=== PATIENT | female | born 2000 | race Caucasian/White ===

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

== ENCOUNTER 2020-08-01 21:26 | Emergency (ER) | payer SELFPAY ==
[2020-08-01] MEDS ORDERED: Albuterol/Ipratropium 3.0-0.5 MG/3 ML Neb Soln NEB ONE (21:56)
--- NOTE | 2020-08-01 22:00 | EDM.PDOC ---
ED HPI GENERAL MEDICAL PROBLEM - General Chief Complaint: Asthma Stated Complaint: ASTHMA RELATED SOB Time Seen by Provider: 08/01/20 21:46 Source of Information: Reports: Patient History Limitations: Reports: No Limitations - History of Present Illness INITIAL COMMENTS - FREE TEXT/NARRATIVE: Patient is a 19-year-old female presenting to the emergency department with complaints of asthma exacerbation. She has had asthma for a number of years. She had previously been prescribed an albuterol inhaler, however she states she has been out of this medication for a while. They recently got a new dog a few days ago although she has a known allergy to pet dander. She states today she was playing around with her dog and she developed tightness in her chest and wheezing with onset about 3 hours prior to coming to the ER. Oxygen saturation in triage was 99% on room air. She denies any other respiratory symptom complaints such as cough, fever, or chills. - Related Data Allergies Allergy/AdvReac Type Severity Reaction Status Date / Time dog dander Allergy Severe Difficulty Verified 08/01/20 22:20 Breathing peanut Allergy Severe Airway Verified 08/01/20 22:20 Tightness pollen extracts Allergy Severe Difficulty Verified 08/01/20 22:20 Breathing Home Meds: Home Meds Loratadine [Claritin] 10 mg PO DAILY 08/01/20 [History] predniSONE 20 mg PO ASDIRECTED #13 tab 08/01/20 [Rx] Past Medical History Respiratory History: Reports: Asthma Social & Family History - Caffeine Use Caffeine Use: Reports: None ED ROS GENERAL - Review of Systems Review Of Systems: Comprehensive ROS is negative, except as noted in HPI. ED EXAM, GENERAL - Physical Exam Exam: See Below General Appearance: Alert, WD/WN, No Apparent Distress Respiratory/Chest: No Respiratory Distress, No Accessory Muscle Use, Chest Non- Tender, Other (Tightness and expiratory wheeze throughout.) Cardiovascular: Normal Peripheral Pulses, Regular Rate, Rhythm, No Edema, No Gallop, No JVD, No Murmur, No Rub GI/Abdominal: Normal Bowel Sounds, Soft, Non-Tender, No Organomegaly, No Distention, No Abnormal Bruit, No Mass Neurological: Alert, Oriented, CN II-XII Intact, Normal Cognition, Normal Gait, Normal Reflexes, No Motor/Sensory Deficits Psychiatric: Normal Affect, Normal Mood Skin Exam: Warm, Dry, Intact, Normal Color, No Rash Course - Vital Signs Last Recorded V/S: Last Vital Signs Temp 97.1 F 08/01/20 21:32 Pulse 79 08/01/20 21:32 Resp 18 08/01/20 21:32 BP 126/79 08/01/20 21:32 Pulse Ox 97 08/01/20 21:56 - Orders/Labs/Meds Orders: Active Orders 24 hr Category Date Time Status RT Aerosol Therapy [RC] ASDIRECTED Care 08/01/20 21:56 Active RT Post Treatment Assessment [RC] Click to Edit Care 08/01/20 22:04 Active RT Pre-Treatment Assessment [RC] Click to Edit Care 08/01/20 22:04 Active Meds: Medications Discontinued Medications Generic Name Dose Route Start Last Admin Trade Name Ezekiel PRN Reason Stop Dose Admin Albuterol 0 gm 08/01/20 22:04 08/01/20 22:11 Proventil Hfa INH 08/01/20 22:05 2 puff ONETIME ONE Administration Albuterol/Ipratropium 3 ml 08/01/20 21:56 08/01/20 22:10 Duoneb 3.0-0.5 Mg/3 Ml NEB 08/01/20 21:57 3 ml ONETIME ONE Administration Prednisone 40 mg 08/01/20 22:05 08/01/20 22:09 Prednisone PO 08/01/20 22:06 40 mg ONETIME ONE Administration - Re-Assessments/Exams Free Text/Narrative Re-Assessment/Exam: Patient is a 19-year-old female presenting to the emergency department with complaints of an asthma exacerbation. She has a known allergy to pet dander but recently got a new dog over the last few days. About 3 hours prior to coming to the ER she experienced tightness in her chest and wheezing. States it is difficult to take a deep breath. She has been on albuterol in the past, however she is out of this medication. She denies any other respiratory complaints suc h as fever, chills, or cough. I have ordered a DuoNeb breathing treatment as well as prednisone p.o. Plan will be to send her home with an albuterol inhaler as well. 08/01/20 22:34 Patient is feeling much better after the DuoNeb treatment. Her lung sounds are now clear to auscultation with no notable wheezing. I will send a prescription for prednisone to [facility]. She does have an albuterol inhaler to take home with her. Recommend follow-up with her primary care provider and return to the ER as needed. Departure - Departure Time of Disposition: 22:34 Disposition: Home, Self-Care 01 Condition: Good Clinical Impression: Exacerbation of asthma Qualifiers: Asthma severity: mild Asthma persistence: unspecified Qualified Code(s): J45.901 - Unspecified asthma with (acute) exacerbation - Discharge Information *PRESCRIPTION DRUG MONITORING PROGRAM REVIEWED*: No *COPY OF PRESCRIPTION DRUG MONITORING REPORT IN PATIENT KASSANDRA: No Prescriptions: predniSONE 20 mg PO ASDIRECTED #13 tab Instructions: Asthma, Adult Referrals: PCP,None [Primary Care Provider] - Forms: ED Department Discharge Additional Instructions: You were seen in the emergency department this evening for an acute asthma exacerbation. While in the ER, you received and a DuoNeb breathing treatment as well as a dose of prednisone. This did improve your breathing significantly. You have been sent home with an albuterol inhaler. Uses it as needed 2 puffs every 4 hours for shortness of breath. A prescription for prednisone has been sent to [facility]. Pick this medication up tomorrow. They are open from 12-4. Take this as prescribed. Recommend follow-up with your primary care provider at the next available visit. Return to ER as needed. Sepsis Event Note (ED) - Evaluation Sepsis Screening Result: No Definite Risk - Focused Exam Vital Signs: Vital Signs Temp Pulse Resp BP Pulse Ox Pulse Ox 08/01/20 21:56 97 08/01/20 21:32 97.1 F 79 18 126/79 99 - My Orders Last 24 Hours: My Active Orders 08/01/20 21:56 RT Aerosol Therapy [RC] ASDIRECTED 08/01/20 22:04 RT Post Treatment Assessment [RC] Click to Edit RT Pre-Treatment Assessment [RC] Click to Edit - Assessment/Plan Last 24 Hours: My Active Orders 08/01/20 21:56 RT Aerosol Therapy [RC] ASDIRECTED 08/01/20 22:04 RT Post Treatment Assessment [RC] Click to Edit RT Pre-Treatment Assessment [RC] Click to Edit
[2020-08-01] MEDS ORDERED: Albuterol 6.7 GM Inhaler INH ONE (22:04)
[2020-08-01] MEDS ORDERED: predniSONE 20 MG Tab PO ONE (22:05)
== END 2020-08-01 22:48 | disposition home or self-care (01) ==
LOC: JD.ED 21:26
DX: J45.901 Unspecified asthma with (acute) exacerbation (principal); Z91.010 Allergy to peanuts; Z91.048 Other nonmedicinal substance allergy status; Z79.899 Other long term (current) drug therapy
CPT/HCPCS: 94640; 99284; A9270; J7512; 99283; J7620-GY

== ENCOUNTER 2020-09-06 21:22 | Emergency (ER) | payer SELFPAY ==
[2020-09-06] MEDS ORDERED: Albuterol 0.083% 2.5 MG/3 ML Neb Soln NEB ONE (21:32)
[2020-09-06] MEDS ORDERED: Albuterol 6.7 GM Inhaler INH ONE (21:32)
[2020-09-06] MEDS ORDERED: methylPREDNISolone Sodium Succinate 125 MG/2 ML SDV IVPUSH ONE (21:38)
[2020-09-06] MEDS ORDERED: Sodium Chloride 0.9% 10 ML Syringe FLUSH PRN (21:38)
--- NOTE | 2020-09-06 21:39 | EDM.PDOC ---
ED HPI GENERAL MEDICAL PROBLEM - General Chief Complaint: Respiratory Problem Stated Complaint: SOB(ASTHMATIC) Time Seen by Provider: 09/06/20 21:27 Source of Information: Reports: Patient, Old Records, RN Notes Reviewed History Limitations: Reports: No Limitations - History of Present Illness INITIAL COMMENTS - FREE TEXT/NARRATIVE: Patient is a 19-year-old female who presents to the ED for the evaluation of her ongoing shortness of breath. Patient has a longstanding history of asthma. She states that she developed worsening symptoms again today. She was at home with her roommate, who has a dog, and she noticed that the dog ended up chewing up her inhaler. Patient notes that she does have an allergy to dogs in general. She is not having any fevers or chills, she has a very tight dry intermittent cough with expiratory wheezing. And some shortness of breath, O2 sats are 97% on room air at this time. Patient has not been around anyone that is been sick. - Related Data Allergies Allergy/AdvReac Type Severity Reaction Status Date / Time dog dander Allergy Severe Difficulty Verified 08/01/20 22:20 Breathing peanut Allergy Severe Airway Verified 08/01/20 22:20 Tightness pollen extracts Allergy Severe Difficulty Verified 08/01/20 22:20 Breathing Home Meds: Home Meds Loratadine [Claritin] 10 mg PO DAILY 08/01/20 [History] predniSONE 20 mg PO ASDIRECTED #13 tab 08/01/20 [Rx] Past Medical History Respiratory History: Reports: Asthma Social & Family History - Family History Family Medical History: No Pertinent Family History - Caffeine Use Caffeine Use: Reports: None ED ROS GENERAL - Review of Systems Review Of Systems: Comprehensive ROS is negative, except as noted in HPI. ED EXAM, GENERAL - Physical Exam Exam: See Below Exam Limited By: No Limitations General Appearance: Alert, WD/WN, Mild Distress (pt is tripod breathing; taking deep heavy breaths. still able to talk in full sentences) Respiratory/Chest: Chest Non-Tender, Decreased Breath Sounds (diffuse bilaterally), Wheezing (end expiratory), Prolonged Expiration (mild), Other (pt is in tripod position taking long deep breaths) Cardiovascular: Normal Peripheral Pulses, Regular Rate, Rhythm, No Murmur Peripheral Pulses: 2+: Radial (L), Radial (R) Extremities: Normal Inspection, Normal Capillary Refill Neurological: Alert, Oriented, Normal Cognition, No Motor/Sensory Deficits Psychiatric: Normal Affect, Normal Mood Skin Exam: Warm, Dry, Intact, Normal Color, No Rash Course - Vital Signs Last Recorded V/S: Last Vital Signs Temp 97.6 F 09/06/20 21:29 Pulse 93 09/06/20 21:29 Resp 20 09/06/20 21:29 BP 138/80 09/06/20 21:29 Pulse Ox 96 09/06/20 21:39 - Orders/Labs/Meds Orders: Active Orders 24 hr Category Date Time Status Peripheral IV Care [RC] . DIRECTED Care 09/06/20 21:38 Ordered RT Aerosol Therapy [RC] ASDIRECTED Care 09/06/20 21:32 Ordered RT Post Treatment Assessment [RC] Click to Edit Care 09/06/20 21:32 Ordered RT Pre-Treatment Assessment [RC] Click to Edit Care 09/06/20 21:32 Ordered Sodium Chloride 0.9% [Saline Flush] Med 09/06/20 21:38 Ordered 10 ml FLUSH ASDIRECTED PRN Peripheral IV Insertion Adult [OM.PC] Routine Oth 09/06/20 21:38 Ordered Medication Orders Sodium Chloride (Saline Flush) 10 ml FLUSH ASDIRECTED PRN PRN Reason: Keep Vein Open Last Admin: 09/06/20 21:57 Dose: 10 ml Documented by: Meds: Medications Generic Name Dose Route Start Last Admin Trade Name Freq PRN Reason Stop Dose Admin Sodium Chloride 10 ml 09/06/20 21:38 09/06/20 21:57 Saline Flush FLUSH 10 ml ASDIRECTED PRN Administration Keep Vein Open Discontinued Medications Generic Name Dose Route Start Last Admin Trade Name Freq PRN Reason Stop Dose Admin Albuterol 2.5 mg 09/06/20 21:32 09/06/20 21:38 Proventil Neb Soln NEB 09/06/20 21:33 2.5 mg ONETIME ONE Administration Albuterol 0 gm 09/06/20 21:32 09/06/20 21:47 Proventil Hfa INH 09/06/20 21:33 Not Given ONETIME ONE Methylprednisolone Sodium Succinate 125 mg 09/06/20 21:38 09/06/20 21:57 Solu-Medrol IVPUSH 09/06/20 21:39 125 mg ONETIME ONE Administration - Re-Assessments/Exams Free Text/Narrative Re-Assessment/Exam: 09/06/20 21:37 Patient presents to the ED for evaluation of her ongoing asthma symptoms. She will be given an albuterol nebulizer to begin with, and 125 mg dose of IV Solu- Medrol. She will also be given an albuterol inhaler, so that she can take it at home. She is to use the inhaler after the nebulizer has been performed, for further wheezing. 09/06/20 22:13 Patient has been given her medications, and has been reassessed at bedside and her wheezing is 95% better. She states she would like to go home at this time, I do not see any reason she cannot. She will be discharged home with general recommendations. Departure - Departure Time of Disposition: 22:14 Disposition: Home, Self-Care 01 Condition: Good Clinical Impression: Asthma attack Qualifiers: Asthma severity: mild Asthma persistence: unspecified Qualified Code(s): J45.901 - Unspecified asthma with (acute) exacerbation - Discharge Information *PRESCRIPTION DRUG MONITORING PROGRAM REVIEWED*: No *COPY OF PRESCRIPTION DRUG MONITORING REPORT IN PATIENT KASSANDRA: No Instructions: Asthma, Adult, [id number] Referrals: PCP,None [Primary Care Provider] - Forms: ED Department Discharge Additional Instructions: You were evaluated in the ER today for your asthma attack. You were given an albuterol inhaler, along with IV steroids. This seemed to help relieve her symptoms quite a bit. You were given a albuterol inhaler, to use 2 puffs 4 times a day for further shortness of breath type symptoms. You were also given a prescription for prednisone, please warehouse picker at the pharmacy tomorrow and take these as directed. If you did not have a primary care provider already, I strongly recommend that you follow-up with a provider in our clinic, any family practice provider would be able to provide you with the services. Our clinic telephone number [phone], please call Monday morning to obtain an appointment with the provider, for follow-up of your symptoms that prompted your ER visit today. Please return to the ER at any time if symptoms change or worsen. Sepsis Event Note (ED) - Evaluation Sepsis Screening Result: No Definite Risk - Focused Exam Vital Signs: Vital Signs Temp Pulse Resp BP Pulse Ox Pulse Ox 09/06/20 21:39 96 09/06/20 21:29 97.6 F 93 20 138/80 96 - My Orders Last 24 Hours: My Active Orders 09/06/20 21:32 RT Aerosol Therapy [RC] ASDIRECTED RT Post Treatment Assessment [RC] Click to Edit RT Pre-Treatment Assessment [RC] Click to Edit 09/06/20 21:38 Peripheral IV Care [RC] . DIRECTED Sodium Chloride 0.9% [Saline Flush] 10 ml FLUSH ASDIRECTED PRN Peripheral IV Insertion Adult [OM.PC] Routine - Assessment/Plan Last 24 Hours: My Active Orders 09/06/20 21:32 RT Aerosol Therapy [RC] ASDIRECTED RT Post Treatment Assessment [RC] Click to Edit RT Pre-Treatment Assessment [RC] Click to Edit 09/06/20 21:38 Peripheral IV Care [RC] . DIRECTED Sodium Chloride 0.9% [Saline Flush] 10 ml FLUSH ASDIRECTED PRN Peripheral IV Insertion Adult [OM.PC] Routine
== END 2020-09-06 22:25 | disposition home or self-care (01) ==
LOC: JD.ED 21:22
DX: J45.909 Unspecified asthma, uncomplicated (principal); Z91.09 Other allergy status, other than to drugs and biological substances; Z91.010 Allergy to peanuts
CPT/HCPCS: 94640; 96374; 99284; A9270; J2930; 99283

== ENCOUNTER 2020-11-19 15:22 | Emergency (ER) | payer SELFPAY ==
[2020-11-19] MEDS ORDERED: Albuterol/Ipratropium 3.0-0.5 MG/3 ML Neb Soln NEB ONE (15:36)
[2020-11-19] MEDS ORDERED: predniSONE 20 MG Tab PO ONE (15:36)
--- NOTE | 2020-11-19 15:59 | EDM.PDOC ---
ED HPI GENERAL MEDICAL PROBLEM - General Chief Complaint: Respiratory Problem Stated Complaint: ASTHMA /DIFFICULTY BREATHING Time Seen by Provider: 11/19/20 15:26 Source of Information: Reports: Patient, RN Notes Reviewed History Limitations: Reports: No Limitations - History of Present Illness INITIAL COMMENTS - FREE TEXT/NARRATIVE: Patient is a 20-year-old female presenting to the emergency department with complaints of an acute asthma exacerbation. Symptoms began early this morning. She describes cough, wheezing, and shortness of breath. She has a known allergy to pet dander, but states she does have a cat and a dog. Last time she used albuterol inhaler was 5 hours ago. She states that she still has 2 to 3 puffs left but she did not use it because she did not think it would help. She is had a mild cough for the last few days but the wheezing started today. She has been seen 3 times in the last 3 months in this ER for asthma exacerbations, but does not have a primary care provider. The albuterol inhaler she is using is the inhaler that she received last time she was in the ER. She is not taking any daily maintenance inhalers. Chest Pain Score (Numeric/FACES): 4 - Related Data Allergies Allergy/AdvReac Type Severity Reaction Status Date / Time dog dander Allergy Severe Difficulty Verified 11/19/20 15:28 Breathing peanut Allergy Severe Airway Verified 11/19/20 15:28 Tightness pollen extracts Allergy Severe Difficulty Verified 11/19/20 15:28 Breathing Home Meds: Home Meds Albuterol Sulfate [Albuterol Sulfate Hfa] 2 puff IH Q4H PRN #1 hfa.aer.ad 11/19/20 [Rx] Albuterol/Ipratropium [DuoNeb 3.0-0.5 MG/3 ML] 3 ml .XX Q4H PRN #30 neb 11/19/20 [Rx] predniSONE [Prednisone] 20 mg PO ASDIRECTED #13 tablet 11/19/20 [Rx] Past Medical History Respiratory History: Reports: Asthma Social & Family History - Family History Family Medical History: No Pertinent Family History - Tobacco Use Tobacco Use Status *Q: Never Tobacco User Second Hand Smoke Exposure: No - Caffeine Use Caffeine Use: Reports: None - Recreational Drug Use Recreational Drug Use: No ED ROS GENERAL - Review of Systems Review Of Systems: See Below Constitutional: Reports: No Symptoms. Denies: Fever, Chills HEENT: Reports: No Symptoms Respiratory: Reports: Shortness of Breath, Wheezing, Pleuritic Chest Pain, Cough Cardiovascular: Reports: No Symptoms Endocrine: Reports: No Symptoms GI/Abdominal: Reports: No Symptoms : Reports: No Symptoms Musculoskeletal: Reports: No Symptoms Skin: Reports: No Symptoms Neurological: Reports: No Symptoms Psychiatric: Reports: No Symptoms Hematologic/Lymphatic: Reports: No Symptoms Immunologic: Reports: No Symptoms ED EXAM, GENERAL - Physical Exam Exam: See Below General Appearance: Alert, WD/WN, No Apparent Distress Respiratory/Chest: Respiratory Distress (Mild), Decreased Breath Sounds, Wheezing (Expiratory throughout. Audible without stethoscope.), Accessory Muscle Use Cardiovascular: Normal Peripheral Pulses, Regular Rate, Rhythm, No Edema, No Gallop, No JVD, No Murmur, No Rub Neurological: Alert, Oriented, CN II-XII Intact, Normal Cognition, Normal Gait, Normal Reflexes, No Motor/Sensory Deficits Psychiatric: Normal Affect, Normal Mood Skin Exam: Warm, Dry, Intact, Normal Color, No Rash Course - Vital Signs Last Recorded V/S: Last Vital Signs Temp 99.7 F 11/19/20 15:32 Pulse 104 H 11/19/20 15:32 Resp 20 11/19/20 15:32 BP 121/90 11/19/20 15:32 Pulse Ox 94 L 11/19/20 15:47 - Orders/Labs/Meds Orders: Active Orders 24 hr Category Date Time Status RT Aerosol Therapy [RC] ASDIRECTED Care 11/19/20 15:36 Active Meds: Medications Discontinued Medications Generic Name Dose Route Start Last Admin Trade Name Ezekiel PRN Reason Stop Dose Admin Albuterol/Ipratropium 3 ml 11/19/20 15:36 11/19/20 15:47 Duoneb 3.0-0.5 Mg/3 Ml NEB 11/19/20 15:37 3 ml ONETIME ONE Administration Prednisone 40 mg 11/19/20 15:36 11/19/20 16:12 Prednisone PO 11/19/20 15:37 40 mg ONETIME ONE Administration - Re-Assessments/Exams Free Text/Narrative Re-Assessment/Exam: Patient is a 20-year-old female presenting to the emergency department with complaints of acute asthma exacerbation. Wheezing and shortness of breath developed this morning. She had a mild cough for the last few days. Patient does not have a primary care provider. The albuterol inhaler she is using is the inhaler that was provided on her previous ER visit. She does not take any daily maintenance inhalers. On exam, she does have diffuse expiratory wheeze which is audible without stethoscope. Oxygen saturation is 96% on room air. I have ordered a DuoNeb breathing treatment and prednisone 40 mg p.o. 11/19/20 16:09 Lung sounds have improved immensely with the breathing treatment. Only a very faint expiratory wheeze is audible to auscultation. Patient does have a nebulizer machine at home. I sent a prescription for DuoNeb breathing treatments as needed as well as prednisone and an albuterol inhaler. Discussed that it is important that she follow-up in the clinic to establish care with a primary care provider to get on maintenance inhalers as indicated. I will send a referral. Discharge instructions as documented. Departure - Departure Time of Disposition: 16:28 Disposition: Home, Self-Care 01 Condition: Good Clinical Impression: Exacerbation of asthma Qualifiers: Asthma severity: mild Asthma persistence: unspecified Qualified Code(s): J45.901 - Unspecified asthma with (acute) exacerbation - Discharge Information *PRESCRIPTION DRUG MONITORING PROGRAM REVIEWED*: No *COPY OF PRESCRIPTION DRUG MONITORING REPORT IN PATIENT KASSANDRA: No Prescriptions: Albuterol Sulfate [Albuterol Sulfate Hfa] 2 puff IH Q4H PRN #1 hfa.aer.ad PRN Reason: Shortness Of Breath Albuterol/Ipratropium [DuoNeb 3.0-0.5 MG/3 ML] 3 ml .XX Q4H PRN #30 neb PRN Reason: Shortness Of Breath predniSONE [Prednisone] 20 mg PO ASDIRECTED #13 tablet Instructions: Asthma, Adult Referrals: Jacqueline Bahena MD [Physician] - Forms: ED Department Discharge Additional Instructions: You were seen in the emergency department today for an acute asthma exacerbation. While in the ER, you received a DuoNeb breathing treatment as wel l as your first dose of prednisone. Your symptoms had significantly improved. A prescription for prednisone, duo nebs, and albuterol has been sent to [facility]. Uses medications as prescribed. Recommend calling to set up an appointment with a primary care provider for ongoing management of your asthma. A referral has been sent to Dr. Bahena. Return to ER as needed. Sepsis Event Note (ED) - Evaluation Sepsis Screening Result: No Definite Risk - Focused Exam Vital Signs: Vital Signs Temp Pulse Resp BP Pulse Ox Pulse Ox 11/19/20 15:47 94 L 11/19/20 15:32 99.7 F 104 H 20 121/90 96 - My Orders Last 24 Hours: My Active Orders 11/19/20 15:36 RT Aerosol Therapy [RC] ASDIRECTED - Assessment/Plan Last 24 Hours: My Active Orders 11/19/20 15:36 RT Aerosol Therapy [RC] ASDIRECTED
--- NOTE | 2020-11-19 16:16 | CR ---
Chest: 2 views of the chest were obtained. Comparison: Prior chest x-ray of 08/15/19. Heart size and mediastinum are normal. Lungs are clear with no acute parenchymal change. Bony structures appear within normal limits. Impression: 1. Nothing acute is appreciated on 2 view chest x-ray. Diagnostic code #1
== END 2020-11-19 16:40 | disposition home or self-care (01) ==
LOC: JD.ED 15:22
DX: J45.901 Unspecified asthma with (acute) exacerbation (principal); Z91.048 Other nonmedicinal substance allergy status; Z91.010 Allergy to peanuts
CPT/HCPCS: 71046; 94640; 99285; J7512; 99283; J7620-GY

== ENCOUNTER 2022-01-12 17:25 | Emergency (ER) | payer SELFPAY ==
[2022-01-12] MEDS ORDERED: HYDROmorphone 1 MG/ML Syringe IM ONE (17:43)
[2022-01-12] MEDS ORDERED: Ketorolac 60 MG/2 ML SDV IM ONE (17:43)
== END 2022-01-12 18:44 | disposition home or self-care (01) ==
LOC: JD.ED 17:25
DX: K02.9 Dental caries, unspecified (principal); Z91.010 Allergy to peanuts; Z88.8 Allergy status to other drugs, medicaments and biological substances
CPT/HCPCS: 96372; 99282; J1170; J1885; 99284

== ENCOUNTER 2025-04-07 06:43 | Inpatient (IN) | payer OTHER ==
[2025-04-07] MEDS ORDERED: Sodium Chloride 0.9% 10 ML Syringe FLUSH PRN (07:07)
[2025-04-07] MEDS ORDERED: Ondansetron 4 MG/2 ML SDV IVPUSH PRN ×2 (07:07→22:59)
[2025-04-07] MEDS ORDERED: Lidocaine 1% 50 ML MDV INJECT PRN (07:07)
[2025-04-07] MEDS ORDERED: Nalbuphine 10 MG/1 ML Vial IVPUSH PRN (07:07)
[2025-04-07] MEDS ORDERED: Oxytocin/0.9 % Sodium Chloride 30 UNIT/500 ML BAG IV SCH (07:15)
[2025-04-07 07:29] LABS: BASOPHILS PERCENT AUTO 0.3 % (0.0-1.0); EOSINOPHILS ABSOLUTE AUTO 0.2 K/mm3 (0.0-0.4); EOSINOPHILS PERCENT AUTO 1.7 % (0.0-6.0); HEMATOCRIT 30.3 % (37.0-47.0); HEMOGLOBIN 9.3 gm/dl (12.0-16.0); IMMATURE GRAN ABSOLUTE AUTO 0.05 K/mm3 (0.00-0.05); IMMATURE GRAN PERCENT AUTO 0.5 % (0.0-0.4); LYMPHOCYTES ABSOLUTE AUTO 1.5 K/mm3 (1.0-4.8); LYMPHOCYTES PERCENT AUTO 13.1 % (24.0-44.0); MEAN CORPUSCULAR HEMOGLOBIN 25.2 pg (28.0-32.0); MEAN CORPUSCULAR HGB CONC 30.7 g/dl (32.0-36.0); MEAN CORPUSCULAR VOLUME 82.1 fl (83.0-99.0); MEAN PLATELET VOLUME 10.6 fl (9.4-12.3); MONOCYTES ABSOLUTE AUTO 0.5 K/mm3 (0.0-0.8); MONOCYTES PERCENT AUTO 4.7 % (0.0-8.0); NEUTROPHILS ABSOLUTE AUTO 8.9 K/mm3 (1.8-7.7); NEUTROPHILS PERCENT AUTO 79.7 % (41.0-71.0); PLATELET COUNT,PLT 240 K/mm3 (150-400); RED BLOOD CELL COUNT 3.69 M/mm3 (4.10-5.30); WHITE BLOOD CELL COUNT,WBC 11.11 K/mm3 (3.9-11.3)
[2025-04-07] MEDS ORDERED: Misoprostol 25 MCG (1/4 of 100 MCG) Tab VAG PRN (11:30)
[2025-04-07] MEDS: Lactated Ringers 1,000 ML IV SCH (12:27)
[2025-04-07] MEDS ORDERED: ePHEDrine 50 MG/ML SDV IVPUSH PRN (13:18)
[2025-04-07] MEDS ORDERED: diphenhydrAMINE 50 MG/ML SDV IVPUSH PRN ×2 (13:18→22:59)
[2025-04-07] MEDS: Bupivacaine/fentaNYL/NS 100 ML Bag EPIDUR PRN (13:25)
[2025-04-07] MEDS: fentaNYL 100 MCG/2 ML SDV EPIDUR PRN (13:25)
[2025-04-07] MEDS: Sodium Chloride 0.9% 10 ML Syringe FLUSH SCH (14:46)
[2025-04-07] MEDS: Misoprostol 25 MCG (1/4 of 100 MCG) Tab VAG ONE (14:46)
[2025-04-07] MEDS: Oxytocin/0.9 % Sodium Chloride 30 UNIT/500 ML BAG IV SCH (15:38)
[2025-04-07 21:05] LABS: BASOPHILS PERCENT AUTO 0.2 % (0.0-1.0); EOSINOPHILS ABSOLUTE AUTO 0.1 K/mm3 (0.0-0.4); EOSINOPHILS PERCENT AUTO 0.7 % (0.0-6.0); HEMATOCRIT 30.6 % (37.0-47.0); HEMOGLOBIN 9.4 gm/dl (12.0-16.0); IMMATURE GRAN ABSOLUTE AUTO 0.05 K/mm3 (0.00-0.05); IMMATURE GRAN PERCENT AUTO 0.4 % (0.0-0.4); LYMPHOCYTES ABSOLUTE AUTO 1.2 K/mm3 (1.0-4.8); LYMPHOCYTES PERCENT AUTO 9.1 % (24.0-44.0); MEAN CORPUSCULAR HEMOGLOBIN 25.3 pg (28.0-32.0); MEAN CORPUSCULAR HGB CONC 30.7 g/dl (32.0-36.0); MEAN CORPUSCULAR VOLUME 82.5 fl (83.0-99.0); MEAN PLATELET VOLUME 9.8 fl (9.4-12.3); MONOCYTES ABSOLUTE AUTO 0.6 K/mm3 (0.0-0.8); MONOCYTES PERCENT AUTO 4.8 % (0.0-8.0); NEUTROPHILS ABSOLUTE AUTO 11.1 K/mm3 (1.8-7.7); NEUTROPHILS PERCENT AUTO 84.8 % (41.0-71.0); PLATELET COUNT,PLT 211 K/mm3 (150-400); RED BLOOD CELL COUNT 3.71 M/mm3 (4.10-5.30); WHITE BLOOD CELL COUNT,WBC 13.09 K/mm3 (3.9-11.3)
[2025-04-07] MEDS: Acetaminophen 325 MG Tab PO ONE (21:19)
[2025-04-07] MEDS: Ampicillin 2 GM in Sodium Chloride 0.9% 100 ML IV SCH (21:21)
[2025-04-07 21:27] LABS: CREATININE,URINE RAND 103.3 mg/dL (30.0-125.0); PROTEIN CREATININE RATIO,URINE 237.2 mg/g (0-149); PROTEIN,URINE RANDOM 24.5 mg/dL (0.0-11.8)
[2025-04-07 21:30] LABS: CREATININE 0.6 mg/dL (0.55-1.02); EST CRCL DRUG DOSING (CG) 114.35 mL/min; URIC ACID 2.8 mg/dL (2.6-6.0)
[2025-04-07] MEDS: SODIUM CHLORIDE 0.9% IV ONE (21:36)
[2025-04-07] MEDS: GENTAMICIN IV ONE (21:36)
[2025-04-07] MEDS ORDERED: dexmedeTOMIDine HCl 200 MCG/2 ML SDV ONE (21:53)
[2025-04-07] MEDS ORDERED: Lidocaine 2% with EPINEPHrine 1:200,000 20 ML SDV ONE (21:54)
[2025-04-07] MEDS: Citric Acid/Sodium Citrate Solution 30 ML Cup PO ONE (21:54)
[2025-04-07] MEDS: Metoclopramide 10 MG/2 ML SDV IVPUSH ONE (21:54)
[2025-04-07] MEDS: Clindamycin Phosphate in D5W 900 MG in Premix Bag 1 BAG IV SCH (21:55)
[2025-04-07] MEDS ORDERED: Dexamethasone 4 MG/ML SDV ONE (21:57)
[2025-04-07] MEDS ORDERED: Ondansetron 4 MG/2 ML SDV ONE (21:57)
[2025-04-07] MEDS ORDERED: Lactated Ringers 1,000 ML ONE (22:14)
[2025-04-07] MEDS ORDERED: Phenylephrine 1% 10 MG/ML SDV ONE (22:18)
[2025-04-07] MEDS ORDERED: Morphine PF 10 MG/10 ML SDV ONE (22:29)
[2025-04-07] MEDS ORDERED: Oxytocin/0.9 % Sodium Chloride 30 UNIT/500 ML BAG IV ONE (22:30)
[2025-04-07] MEDS ORDERED: Methylergonovine 0.2 MG/1 ML Amp ONE (22:34)
[2025-04-07] MEDS ORDERED: fentaNYL 100 MCG/2 ML SDV IVPUSH PRN (22:59)
[2025-04-07] MEDS ORDERED: Meperidine 50 MG/ML Vial IVPUSH PRN (22:59)
[2025-04-07] MEDS ORDERED: Albuterol 6.7 GM Inhaler INH PRN (23:02)
[2025-04-08] MEDS ORDERED: ePHEDrine 50 MG/ML SDV IVPUSH PRN (00:38)
[2025-04-08] MEDS ORDERED: Acetaminophen 325 MG Tab PO PRN (00:38)
[2025-04-08] MEDS ORDERED: diphenhydrAMINE 50 MG/ML SDV IVPUSH PRN (00:38)
[2025-04-08] MEDS ORDERED: Ondansetron 4 MG/2 ML SDV IV PRN (00:38)
[2025-04-08] MEDS ORDERED: Naloxone 0.4 MG/ML SDV IVPUSH PRN (00:38)
[2025-04-08] MEDS: Dextrose 5%-Lactated Ringers 1,000 ML IV SCH (02:15)
[2025-04-08] MEDS: Ketorolac 30 MG/ML SDV IVPUSH SCH (05:05)
[2025-04-08 07:07] LABS: HEMATOCRIT 28.4 % (37.0-47.0); HEMOGLOBIN 8.8 gm/dl (12.0-16.0); MEAN CORPUSCULAR HEMOGLOBIN 25.1 pg (28.0-32.0); MEAN CORPUSCULAR VOLUME 81.1 fl (83.0-99.0); MEAN PLATELET VOLUME 10.4 fl (9.4-12.3); PLATELET COUNT,PLT 230 K/mm3 (150-400); WHITE BLOOD CELL COUNT,WBC 19.16 K/mm3 (3.9-11.3)
[2025-04-08] MEDS: Citalopram 20 MG Tab PO SCH (08:56)
[2025-04-08] MEDS: oxyCODONE 5 MG Tab PO PRN (10:14)
[2025-04-08 16:31] LABS: HEMATOCRIT 27.8 % (37.0-47.0); HEMOGLOBIN 8.5 gm/dl (12.0-16.0); MEAN CORPUSCULAR HEMOGLOBIN 25.2 pg (28.0-32.0); MEAN CORPUSCULAR HGB CONC 30.6 g/dl (32.0-36.0); MEAN CORPUSCULAR VOLUME 82.5 fl (83.0-99.0); MEAN PLATELET VOLUME 10.3 fl (9.4-12.3); PLATELET COUNT,PLT 233 K/mm3 (150-400); RED BLOOD CELL COUNT 3.37 M/mm3 (4.10-5.30); WHITE BLOOD CELL COUNT,WBC 15.27 K/mm3 (3.9-11.3)
[2025-04-08] MEDS: Montelukast 10 MG Tab PO SCH (22:12)
[2025-04-08] MEDS: Ibuprofen 600 MG Tab PO SCH (23:57)
[2025-04-09] MEDS: Docusate Sodium 100 MG Cap PO PRN (10:39)
== END 2025-04-10 13:00 | disposition home or self-care (01) | DRG 788 ==
LOC: JD.OB 06:43 → OBSVTOIN 22:27 → JD.OB 22:28
PROVIDERS: ADMIT Obstetrics & Gynecology; ATTEND Obstetrics & Gynecology
PROC: 10907ZC Drainage of Amniotic Fluid, Therapeutic from Products of Conception, Via Natural or Artificial Opening (ICD-10-PCS; principal; 2025-04-07 22:15)
PROC: 10D00Z1 Extraction of Products of Conception, Low, Open Approach (ICD-10-PCS; principal; 2025-04-07 22:15)
PROC: 3E0R3BZ Introduction of Anesthetic Agent into Spinal Canal, Percutaneous Approach (ICD-10-PCS; principal; 2025-04-07 22:15)
DX: O41.1230 Chorioamnionitis, third trimester, not applicable or unspecified (principal); O99.02 Anemia complicating childbirth; Z3A.39 39 weeks gestation of pregnancy; Z37.0 Single live birth; Z79.899 Other long term (current) drug therapy
CPT/HCPCS: 01967; 01968; 36415; 51702; 59025; 82565; 82570; 83615; 84156; 84450; 84460; 84520; 84550; 85025; 85027; 86592; 86850; 86900; 86901; 94762; 99140; A9270-GY; C1726; J0290; J0736; J1100; J1580; J1885; J2210; J2274; J2371; J2405; J2765; J3010; J3490; J7120; J7121; J7999